=== PATIENT | male | born 1975 | race Caucasian/White ===

== ENCOUNTER 2024-07-21 10:55 | Emergency (ER) | payer OTHER, SELFPAY ==
[~2024-07-21] VITALS: Ht 177.8 cm; Wt 60.7 kg
[2024-07-21 13:08] VITALS: BP 165/96; PULSE 77; RESP 20; TEMP 97.8; O2SAT 100
[2024-07-21] MEDS ORDERED: AUG875T PO (13:46)
--- NOTE | 2024-07-21 13:47 | ED.PDOC ---
Epistaxis- HPI HPI Comments 48-year-old male presents for epistaxis to the right nostril x1 day. Onto started at 4:00 a.m. suddenly. Has a history of smoking tobacco for the last 10 years. Denies taking any blood thinners Chief Complaint: Nose Bleed Time Seen by MD: 11:02 Primary Care Provider: UNKNOWN Reviewed Notes: Nurses Notes, Medications, Allergies Allergies: Coded Allergies: NO KNOWN ALLERGIES (Unverified , 07/21/24) Information Source: Patient Mode of Arrival: Ambulatory All Other Systems: Reviewed and Negative (per hpi) Physical Exam General Appearance: No Apparent Distress, Normal HEENT: Normal ENT Inspection, Pharynx Normal (airway intact), TMs Normal, Other (unable to visualize source of bleeding. ) Neck: Full Range of Motion, Non-Tender, Normal, Normal Inspection Respiratory: Chest Non-Tender, Lungs Clear, No Accessory Muscle Use, No Respiratory Distress, Normal Breath Sounds Cardiovascular: No Edema, No JVD, No Murmur, No Gallop, Normal Peripheral Pulses, Regular Rate/Rhythm Breast Exam: Deferred Gastrointestinal: No Organomegaly, Non Tender, No Pulsatile Mass, Normal Bowel Sounds, Soft Genitalia: Deferred Pelvic: Deferred Rectal: Deferred Extremities: No calf tenderness, Normal capillary refill, Normal inspection, Normal range of motion, Non-tender, No pedal edema Musculoskeletal : Apperance: Normal Neurologic: Alert, 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 Was a procedure done?: No Differential Diagnosis (NSB) Differential Diagnosis: Anterior Nasal Bleed X-Ray, Labs, Meds, VS Vital Signs Date Time Temp Pulse Resp B/P (MAP) Pulse Ox O2 Delivery O2 Flow Rate FiO2 07/21/24 13:08 97.8 77 20 165/96 (119) 100 97.8 07/21/24 13:08 77 20 100 Room Air 07/21/24 11:20 97.8 77 20 165/96 (119) 100 X-Ray, Labs, Meds, VS Comment After ROS and physical examination, differentials considered but not limited to: URI, trauma, nose picking, environmental irritants, FB. I also considered intranasal drug use, neoplasm, polyps, anticoagulation, thrombocytopenia, however, this is less likely as the patient does not use recreational drugs and does not present with risk factors such as cirrhosis, hematologic disorders, and they are not on anticoagulation or antiplatelet treatment. The bleeding source appears to be anterior in origin. Patient instructed to gently blow nose to remove any residual clots. Then, patient's nose was sprayed using atomizer with oxymetazoline Rapid rhino nasal packing placed by me to affected nare. No further bleeding appreciated. Patient tolerated procedure well without difficulty. No evidence of posterior pharyngeal bleeding nor significant trauma and no suspicion for coagulopathy. Recommended no nose blowing, no digitial trauma. Prophylactic antibiotics prescribed. Referral to [facility] for follow up removal of packing and definitive evaluation and treatment. The patient appears to be an appropriate outpatient candidate. Return to Emergency Department precautions given. Time of 1ST Reevaluation: 13:42 Reevaluation 1ST: Improved Patient Education/Counseling: Diagnosis, Treatment Family Education/Counseling: Diagnosis, Treatment Departure 1 Departure Time of Disposition: 13:45 Impression: Primary Impression: Epistaxis Disposition: 01 HOME / SELF CARE / HOMELESS Condition: Stable e-Prescriptions Amoxicillin & Pot Clavulanate (AUGMENTIN TABLET) 875 Mg Tb 875 MG PO BID for 7 Days, #14 TAB 0 Refills Prov: ANYA MANN NP 07/21/24 Critical Care Note Critical Care Time?: No Stability Stability form required: No Heart Score Heart Score: Heart Score Response (Comments) Value History N/A 0 EKG N/A 0 Age N/A 0 Risk Factors N/A 0 Troponin N/A 0 Total 0 ANYA MANN NP Jul 21, 2024 13:47
== END 2024-07-21 13:59 | disposition home or self-care (01) ==
LOC: ER 10:55
DX: R04.0 Epistaxis (principal)
CPT/HCPCS: 30901

== ENCOUNTER 2024-08-21 20:29 | Emergency (ER) | payer SELFPAY ==
[~2024-08-21] VITALS: Ht 180.3 cm; Wt 61.7 kg
[~2024-08-21 20:29] MED LIST: AUG875T PO
[2024-08-21 20:41] VITALS: TEMP 98.5
--- NOTE | 2024-08-21 21:06 | ED.PDOC ---
History of Present Illness HPI Comments 48 y/o M presents with relative for c/o rash to right chest-wall, shoulder, upper-back, left mid-back, and bilateral, inner-thighs with associated itchiness sensation, today. Per family member, patient was brought to the ED after complaining of ongoing rash he has had for two weeks. Patient reports no prior history of rash in the past. Family member at bedside concerned for shingles. Patient was states the rash feels itchy but denies any burning or sharp or nerve like sensation to the rash. Denies any pain. No fevers, chills, nausea, vomiting, or diarrhea. No respiratory distress. Patient was revealed that he has an aunt infestation in his room and has woken up with and crawling all over his body which he states is due to the heat. No other pain or symptoms. Chief Complaint: Rash Time Seen by MD: 20:50 Primary Care Provider: UNKNOWN Reviewed Notes: Nurses Notes, Medications, Allergies Allergies: Coded Allergies: NO KNOWN ALLERGIES (Unverified , 07/21/24) Home Meds Active Scripts Cephalexin Monohydrate (Cephalexin) 500 Mg Cap, 500 MG PO Q6HR for 5 Days, #20 MG Prov:TELMA CANDELARIA MD 08/21/24 Amoxicillin & Pot Clavulanate (AUGMENTIN TABLET) 875 Mg Tb, 875 MG PO BID for 7 Days, #14 TAB 0 Refills Prov:ANYA MANN NP 07/21/24 Information Source: Patient, Relative Mode of Arrival: Ambulatory Severity: Moderate Timing: Days Duration: Since onset Prehospital treatment: None Past Medical History PAST MEDICAL HISTORY: HTN Surgical History: Denies all surgeries Family History Family History: Unknown Social History Smoker: Non-Smoker Alcohol: Denies ETOH Use Drugs: Denies Drug Use Lives In: Home All Other Systems: Reviewed and Negative (negqtive unless stated in HPI) Physical Exam General Appearance: No Apparent Distress, Normal HEENT: Normal ENT Inspection, Pharynx Normal, TMs Normal Neck: Full Range of Motion, Non-Tender, Normal, Normal Inspection Respiratory: Chest Non-Tender, Lungs Clear, No Accessory Muscle Use, No Respiratory Distress, Normal Breath Sounds Cardiovascular: No Edema, No JVD, No Murmur, No Gallop, Normal Peripheral Pulses, Regular Rate/Rhythm Breast Exam: Deferred Gastrointestinal: No Organomegaly, Non Tender, No Pulsatile Mass, Normal Bowel Sounds, Soft Genitalia: Deferred Pelvic: Deferred Rectal: Deferred Extremities: No calf tenderness, Normal capillary refill, Normal inspection, Normal range of motion, Non-tender, No pedal edema Musculoskeletal : Apperance: Normal Neurologic: Alert, 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 No crepitus. No discharge. No tenderness to palpation. No open wounds. No bullae. No skip lesions.) Lymphatic: No Adenopathy Was a procedure done? Was a procedure done?: No Differential Dx Considerations may include: insect bites, cellulitis, dermatitis, viral syndrome, shingles, disseminated shingles, allergic reaction X-Ray, Labs, Meds, VS Vital Signs Date Time Temp Pulse Resp B/P (MAP) Pulse Ox O2 Delivery O2 Flow Rate FiO2 08/21/24 20:41 98.5 78 15 160/86 (110) 98 98.5 X-Ray, Labs, Meds, VS Comment 48-year-old male here today with complaints of rash as above. Vital signs stable, afebrile. Physical exam with evidence of scattered dry rash with scattered areas of erythema consistent with the patient's reported history of possible ant bites with a possible overlying cellulitis. Plan made to prescribe the patient was short course of Keflex and I stressed the importance of cleaning his room in an attempt to get rid of the ants to prevent further bites. Also encouraged the patient was to use hydrating lotion to help with his dry skin which could also be contributing to his itchiness. Considered necrotizing soft tissue infection however patient was overall very well-appearing, afebrile, and physical exam is not consistent with that presentation. Considered anaphylactic reaction/hives however no evidence of urticaria on exam nor new exposures on history. Considered shingles however it would have to be disseminated shingles given the patient was overall rash distribution and the patient was no significant history of immunosuppression such as diabetes/HIV/prolonged steroid use so considered to be less likely as well. Patient was discharged home with instructions to follow up with his primary care provider for consideration of referral to Dermatology should his symptoms not improve. Patient expressed understanding and was discharged home with strict instructions to return for signs of worsening rash, respiratory distress, chest pain, abdominal pain, nausea/vomiting, headaches, vision changes, numbness, weakness, any other new or concerning symptoms. Time of 1ST Reevaluation: 21:20 Reevaluation 1ST: Unchanged Patient Education/Counseling: Diagnosis, Treatment Family Education/Counseling: No Family Present Departure 1 Departure Time of Disposition: 21:26 Impression: Primary Impression: Cellulitis Additional Impressions: Insect bite Dry skin Disposition: HOME / SELF CARE / HOMELESS Condition: Stable e-Prescriptions Cephalexin Monohydrate (Cephalexin) 500 Mg Cap 500 MG PO Q6HR for 5 Days, #20 MG Prov: TELMA CANDELARIA MD 08/21/24 Critical Care Note Critical Care Time?: No Stability Stability form required: No Heart Score Heart Score: Heart Score Response (Comments) Value History N/A 0 EKG N/A 0 Age N/A 0 Risk Factors N/A 0 Troponin N/A 0 Total 0 I personally scribed for TELMA CANDELARIA MD ([email or web address]) on 08/21/24 at 21:06. Electronically submitted by Levy Ty ([email or web address]). TELMA CANDELARIA MD Aug 21, 2024 21:06
[2024-08-21] MEDS ORDERED: CEPH500C PO (21:20)
[2024-08-21 21:39] VITALS: BP 168/92; PULSE 87; RESP 16; O2SAT 98
== END 2024-08-21 21:43 | disposition home or self-care (01) ==
LOC: ER 20:29
DX: L03.90 Cellulitis, unspecified (principal); T14.8XXA Other injury of unspecified body region, initial encounter; L85.3 Xerosis cutis; I10 Essential (primary) hypertension; W57.XXXA Bitten or stung by nonvenomous insect and other nonvenomous arthropods, initial encounter